=== PATIENT | male | born 1965 | race Caucasian/White ===

== ENCOUNTER 2019-05-06 14:15 | Emergency (ER) | payer OTHER ==
[~2019-05-06] VITALS: Ht 185.4 cm; Wt 103.9 kg
[~2019-05-06 14:15] MED LIST: LATUDA40 MG PO; LEXAPRO20 MG PO; METAMUCIL660 GM PO; METRONIDAZOLE500 MG ORAL; QUETIAPINE FUM200 MG PO; TRAMADOL HCL50 MG ORAL
--- NOTE | 2019-05-06 14:24 | NUR ---
ED Nurse Note: PT walked into ED for C/O left abdominal pain radiating to his back with diahrrea x 8 days. pt alert x4.
[2019-05-06 14:25] VITALS: BP_SYST 121; BP_SYST 139; BP_DIAS 100; BP_DIAS 86
[2019-05-06] MEDS ORDERED: Morphine Sulfate 4mg/ml Inj (IV USE ONLY) IVP ONE (14:45)
[2019-05-06] MEDS ORDERED: Ketorolac 30mg Inj IV ONE (14:45)
[2019-05-06] MEDS ORDERED: Omnipaque-300 100ml vial INJ PRN (14:45)
--- NOTE | 2019-05-06 14:56 | NUR ---
ED Nurse Note: blood sample sent down to lab
--- NOTE | 2019-05-06 15:01 | Emergency Room Report ---
History of Present Illness General Chief Complaint: Abdominal Pain Source: Patient Present Illness HPI 53-year-old male presents ED for evaluation. Complaining of abdominal pain with diarrhea for 8 days. Pain is left-sided, cramping, 8 out of 10, radiating to the back. Notes multiple watery loose stools. Denies nausea or vomiting. Denies fevers or chills. Denies chest pain. Denies recent travel or recent antibiotic use. No other aggravating relieving factors. Denies any other associated symptoms Allergies: Coded Allergies: SULFA(SULFONAMIDE ANTIBIOTICS) (Verified Allergy, Mild, Hives, 05/12/12) Patient History Past Medical History: DM Past Surgical History: none Pertinent Family History: none Social History: Denies: smoking, alcohol use, drug use Immunizations: UTD Reviewed Nursing Documentation: PMH: Agreed; PSxH: Agreed Nursing Documentation-PMH Past Medical History: No History, Except For Hx Diabetes: Yes Review of Systems All Other Systems: negative except mentioned in HPI Physical Exam Vital Signs Date Time Temp Pulse Resp B/P (MAP) Pulse Ox O2 Delivery O2 Flow Rate FiO2 05/06/19 14:19 97.3 101 18 121/86 (98) 98 Room Air Sp02 EP Interpretation: reviewed, normal General Appearance: no apparent distress, alert, GCS 15, non-toxic Head: normocephalic, atraumatic Eyes: bilateral eye normal inspection, bilateral eye PERRL ENT: hearing grossly normal, normal pharynx, no angioedema, normal voice Neck: full range of motion, supple/symm/no masses Respiratory: chest non-tender, lungs clear, normal breath sounds, speaking full sentences Cardiovascular #1: regular rate, rhythm, no edema Cardiovascular #2: 2+ carotid (R), 2+ carotid (L), 2+ radial (R), 2+ radial (L) , 2+ dorsalis pedis (R), 2+ dorsalis pedis (L) Gastrointestinal: normal bowel sounds, soft, non-distended, no guarding, no rebound, tenderness Rectal: deferred Genitourinary: normal inspection, no CVA tenderness Musculoskeletal: back normal, normal range of motion, gait/station normal, non- tender Neurologic: alert, motor strength/tone normal, oriented x3, sensory intact, responsive, speech normal Psychiatric: judgement/insight normal, memory normal, mood/affect normal, no suicidal/homicidal ideation Reflexes: 3+ bicep (R), 3+ bicep (L), 3+ tricep (R), 3+ tricep (L), 3+ knee (R) , 3+ knee (L) Skin: no rash Lymphatic: no adenopathy Medical Decision Making Diagnostic Impression: Primary Impression: Colitis ER Course Hospital Course 53-year-old M presents to ED with abdominal pain, diarrhea Differential diagnosis includes-appendicitis, cholecystitis, small bowel obstruction, gastritis, Clinical course Patient placed on stretcher. After initial history and physical I ordered labs , IV fluids, pain medications and CT scan Labs - no leukocytosis, electrolytes ok, LFTs normal CT scan shows colitis in ascending colon I discussed findings with the patient. Labs unremarkable. Vitals stable. Will discharge home with antibiotics. Safe for discharge. States he has a PMD I feel this is a highly complex case requiring extensive working including EKG/ Rhythm strip, Xray/CT/US, Blood/urine lab work, repeat exams while in ED, and administration of strong opiates/narcotics for pain control, admission to hospital or close patient follow up. Diagnosis - colitis Stable and discharged to home with Rx Cipro, Bentyl, Zantac. Followup with PMD. Return to ED if symptoms recur or worsen Labs Test 05/06/19 14:52 White Blood Count 8.1 K/UL (4.8-10.8) Red Blood Count 5.35 M/UL (4.70-6.10) Hemoglobin 16.0 G/DL (14.2-18.0) Hematocrit 47.1 % (42.0-52.0) Mean Corpuscular Volume 88 FL (80-99) Mean Corpuscular Hemoglobin 29.8 PG (27.0-31.0) Mean Corpuscular Hemoglobin Concent 33.9 G/DL (32.0-36.0) Red Cell Distribution Width 11.7 % (11.6-14.8) Platelet Count 276 K/UL (150-450) Mean Platelet Volume 6.2 FL (6.5-10.1) Neutrophils (%) (Auto) 55.6 % (45.0-75.0) Lymphocytes (%) (Auto) 38.2 % (20.0-45.0) Monocytes (%) (Auto) 4.7 % (1.0-10.0) Eosinophils (%) (Auto) 0.5 % (0.0-3.0) Basophils (%) (Auto) 0.9 % (0.0-2.0) Urine Color Yellow Urine Appearance Clear Urine pH 6 (4.5-8.0) Urine Specific [place] 1.015 (1.005-1.035) Urine Protein 3+ (NEGATIVE) Urine Glucose (UA) Negative (NEGATIVE) Urine Ketones 1+ (NEGATIVE) Urine Blood Negative (NEGATIVE) Urine Nitrite Negative (NEGATIVE) Urine Bilirubin Negative (NEGATIVE) Urine Urobilinogen 4 MG/DL (0.0-1.0) Urine Leukocyte Esterase 1+ (NEGATIVE) Urine RBC 0-2 /HPF (0 - 0) Urine WBC 2-4 /HPF (0 - 0) Urine Squamous Epithelial Cells Occasional /LPF Urine Bacteria Occasional /HPF (NONE) Urine Mucus Moderate /LPF (NONE/OCC) Sodium Level 139 MMOL/L (136-145) Potassium Level 3.8 MMOL/L (3.5-5.1) Chloride Level 103 MMOL/L (98-107) Carbon Dioxide Level 26 MMOL/L (21-32) Anion Gap 11 mmol/L (5-15) Blood Urea Nitrogen 12 mg/dL (7-18) Creatinine 1.0 MG/DL (0.55-1.30) Estimat Glomerular Filtration Rate > 60 mL/min (>60) Glucose Level 189 MG/DL (74-106) Calcium Level 9.6 MG/DL (8.5-10.1) Total Bilirubin 0.9 MG/DL (0.2-1.0) Aspartate Amino Transf (AST/SGOT) 15 U/L (15-37) Alanine Aminotransferase (ALT/SGPT) 29 U/L (12-78) Alkaline Phosphatase 114 U/L (46-116) Total Protein 8.2 G/DL (6.4-8.2) Albumin 3.9 G/DL (3.4-5.0) Globulin 4.3 g/dL Albumin/Globulin Ratio 0.9 (1.0-2.7) Lipase 192 U/L (73-393) CT/MRI/US Diagnostic Results CT/MRI/US Diagnostic Results : Imaging Test Ordered: CT A/P Impression Findings: Lack of enteric contrast limits assessment of the GI tract. The appendix is not visualized. Surgical merlin in the cecal region suggest prior appendectomy , also previously demonstrated. There is equivocal mild wall thickening of the ascending colon. There is no evidence of colonic diverticulosis or diverticulitis. No small bowel distention. No free or loculated intraperitoneal gas or fluid is evident. Distal esophagus, stomach, duodenum are unremarkable. The gallbladder has been removed. The liver is hypoattenuating. The bile ducts, pancreas, spleen, adrenals, kidneys are unremarkable. No retroperitoneal or mesenteric mass or adenopathy. No pelvic mass or adenopathy. The included lung bases demonstrate scattered areas of atelectasis and/or scarring. The bones demonstrate mild degenerative spondylosis changes. Impression: Limited assessment of the GI tract, due to lack of enteric contrast administration Equivocal mild wall thickening of ascending colon, if real could indicate mild colitis changes. No other acute abnormality demonstrated. Fatty liver, also previously described Evidence of prior appendectomy and cholecystectomy Basilar atelectasis and/or scarring, degenerative spondylosis incidentally noted Last Vital Signs Date Time Temp Pulse Resp B/P (MAP) Pulse Ox O2 Delivery O2 Flow Rate FiO2 05/06/19 14:25 97.3 98 18 139/100 98 Room Air Status: improved Disposition: HOME, SELF-CARE Condition: Stable Scripts Dicyclomine Hcl* (DICYCLOMINE HCL*) 10 Mg Capsule 10 MG ORAL QID, #20 CAP Prov: Meng Kim MD 05/06/19 Ranitidine Hcl* (ZANTAC*) 150 Mg Tablet 150 MG ORAL TWICE A DAY, #30 TAB Prov: Meng Kim MD 05/06/19 Ciprofloxacin Hcl* (CIPROFLOXACIN HCL*) 500 Mg Tablet 500 MG ORAL Q12H, #14 TAB 0 Refills Prov: Meng Kim MD 05/06/19 Meng Kim MD May 06, 2019 15:01
[2019-05-06 15:27] LABS: BASOPHILS % (AUTO) 0.9 % (0.0-2.0); EOSINOPHILS % (AUTO) 0.5 % (0.0-3.0); HEMATOCRIT 47.1 % (42.0-52.0); LYMPHOCYTES % (AUTO) 38.2 % (20.0-45.0); MEAN CORPUSCULAR VOLUME 88 FL (80-99); MONOCYTES % (AUTO) 4.7 % (1.0-10.0); NEUTROPHILS % (AUTO) 55.6 % (45.0-75.0); PLATELET COUNT 276 K/UL (150-450); RED BLOOD COUNT 5.35 M/UL (4.70-6.10); RED CELL DISTRIBUTION WIDTH 11.7 % (11.6-14.8); WHITE BLOOD COUNT 8.1 K/UL (4.8-10.8)
[2019-05-06 15:30] LABS: ANION GAP 11 mmol/L (5-15); APPEARANCE,URINE CLEAR; BILIRUBIN, URINE NEGATIVE (NEGATIVE); BLOOD UREA NITROGEN 12 mg/dL (7-18); CALCIUM 9.6 MG/DL (8.5-10.1); CARBON DIOXIDE 26 MMOL/L (21-32); CHLORIDE 103 MMOL/L (98-107); GLUCOSE, URINE (UA) NEGATIVE (NEGATIVE); KETONES,URINE 1+ (NEGATIVE); LEUKOCYTE ESTERASE ,URINE 1+ (NEGATIVE); NITRITE,URINE NEGATIVE (NEGATIVE); PH,URINE 6 (4.5-8.0); POTASSIUM 3.8 MMOL/L (3.5-5.1); PROTEIN,URINE 3+ (NEGATIVE); SODIUM 139 MMOL/L (136-145); UROBILINOGEN,URINE 4 MG/DL (0.0-1.0)
[2019-05-06 15:32] LABS: COLOR,URINE YELLOW
[2019-05-06 15:34] LABS: ALANINE AMINOTRANSFERASE 29 U/L (12-78); ALBUMIN 3.9 G/DL (3.4-5.0); ALBUMIN/GLOBULIN RATIO 0.9 (1.0-2.7); ALKALINE PHOSPHATASE 114 U/L (46-116); ASPARTATE AMINO TRANSFERASE 15 U/L (15-37); BILIRUBIN,TOTAL 0.9 MG/DL (0.2-1.0)
--- NOTE | 2019-05-06 16:23 | NUR ---
ED Nurse Note: PT in bed awake, no acute distress noted. VSS
[2019-05-06 16:24] VITALS: BP 122/88
--- NOTE | 2019-05-06 16:45 | Diagnostic Imaging Report ---
Clinical Indication: Abdominal pain with diarrhea for 3 days Technique: No oral contrast utilized, per emergency room physician request IV administration nonionic contrast. Venous phase spiral acquisition obtained through the abdomen and pelvis. Multiplanar reconstructions were generated. Total dose length product 663 mGycm. CTDIvol(s) 11 mGy. Dose reduction achieved using automated exposure control Comparison: 05/12/2012 Findings: Lack of enteric contrast limits assessment of the GI tract. The appendix is not visualized. Surgical merlin in the cecal region suggest prior appendectomy, also previously demonstrated. There is equivocal mild wall thickening of the ascending colon. There is no evidence of colonic diverticulosis or diverticulitis. No small bowel distention. No free or loculated intraperitoneal gas or fluid is evident. Distal esophagus, stomach, duodenum are unremarkable. The gallbladder has been removed. The liver is hypoattenuating. The bile ducts, pancreas, spleen, adrenals, kidneys are unremarkable. No retroperitoneal or mesenteric mass or adenopathy. No pelvic mass or adenopathy. The included lung bases demonstrate scattered areas of atelectasis and/or scarring. The bones demonstrate mild degenerative spondylosis changes. Impression: Limited assessment of the GI tract, due to lack of enteric contrast administration Equivocal mild wall thickening of ascending colon, if real could indicate mild colitis changes. No other acute abnormality demonstrated. Fatty liver, also previously described Evidence of prior appendectomy and cholecystectomy Basilar atelectasis and/or scarring, degenerative spondylosis incidentally noted The CT scanner at [facility] is accredited by the [employer] and the scans are performed using protocols designed to limit radiation exposure to as low as reasonably achievable to attain images of sufficient resolution adequate for diagnostic evaluation.
[2019-05-06] MEDS ORDERED: DICYCLOMINE HCL10 MG ORAL (17:11)
[2019-05-06] MEDS ORDERED: RANITIDINE HCL150 MG ORAL (17:11)
[2019-05-06] MEDS ORDERED: CIPROFLOXACIN500 M2 ORAL (17:11)
[2019-05-06 17:16] VITALS: BP 130/86
--- NOTE | 2019-05-06 17:16 | NUR ---
ER DISCHARGE NOTE: Patient is cleared to be discharged per ERMD, pt is aox4, on room air, with stable vital signs. pt was given dc and prescription instructions, pt was able to verbalize understanding, pt id band and iv site removed without complications. pt is able to ambulate with steady gait. pt took all belongings.
== END 2019-05-06 17:16 | disposition home or self-care (01) ==
LOC: EMR 15:04
DX: K52.9 Noninfective gastroenteritis and colitis, unspecified (principal); E11.9 Type 2 diabetes mellitus without complications; Z88.2 Allergy status to sulfonamides
CPT/HCPCS: 36415; 74177; 80053; 81003; 83690; 85025; 96361; 96374; 96375; J1885; J2270; J7030; Q9967; S0028; Z7502; 99284